=== PATIENT | male | born 1960 | race Caucasian/White ===

== ENCOUNTER 2021-09-25 00:32 | Day surgery (SDC) | payer BC, SELFPAY ==
[2021-09-23 09:13] VITALS: BMI 29.5
--- NOTE | 2021-09-23 09:23 | PC.NURSE ---
Report to the Outpatient Waiting Room, entrance under the green pavilion located off [facility], at time 0600 on date 09/25/21. OR Time: 0730. - You and your visitor will be asked a series of questions to screen for COVID 19 for your protection. - Only one visitor is allowed at this time. - The patient visitor is requested to leave or wait in car when not with patient. - A mask is required within the hospital. Patients may have clear liquids (water, carbonated beverages, clear teas, apple juice) until 3 hours prior to surgery with a maximum of 20 ounces. - No food from midnight until time of surgery Take the following medications with a SIP of water the morning of surgery: NONE Medications to discontinue per physician: VITAMINS/SUPPLEMENTS Date to take last dose: NO MORE UNTIL AFTER SURGERY Please no make-up, nail turkish, hairspray, perfume, deodorant, or body powder the day of surgery. No jewelry (including any body piercings) or valuables the day of surgery, leave them at home. Please take a shower or bath the night before, or the morning of, surgery with an antibacterial soap. Wear comfortable, loose fitting clothing. - Jewelry must be removed prior to entering the operating room. Rings and piercings that are not removed may be cut off. - The hospital will not accept responsibility for valuables. - Please leave all valuables, including medications, at home the day of surgery. If you are going home after surgery, a licensed hazardous materials driver must drive you home. - NO public transportation without another adult. - We recommend that an adult stay with you for 24 hours following discharge. - We also recommend that you do not drive, make important decision, drink alcoholic beverages, or take any drugs that were not prescribed by your health care provider for at least 24 hours after your discharge time. Follow any additional instructions given to you from your surgeon. If you or anyone in your household have experienced Covid symptoms in the past week, please notify your surgeon or the nurse liaison at the phone number below for possible testing. Telephone instructions given to PT - KUNAL COLEMAN and asked if any additional questions and then verbalized understanding. Patient advised to call surgeon office or pre surgery nurse liaison [phone] if any additional questions.
[2021-09-25] MEDS: LACTATED RINGERS 1,000 ML 30 ML IV CONT (06:27)
--- NOTE | 2021-09-25 07:04 | WPDHPUPDATE1 ---
History and Physical Update Update Date/Time: 09/25/21 07:04 History and Physical has been reviewed, including an updated exam of the patient. There are NO changes in the patient's condition. Risks, benefits, and alternatives have been discussed and questions answered. Patient agrees to proceed with procedure.
--- NOTE | 2021-09-25 07:07 | WPDANESEPPF ---
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 Patient Data Age: 61 Gender: M Height: 1.82 m Weight: 100.2 kg Allergies Allergy/AdvReac Type Severity Reaction Status Date / Time No Known Allergies Allergy Verified 09/25/21 07:04 Home Medications Medication Instructions Recorded Confirmed Type ascorbic acid (vitamin C) 1,000 mg 1 gm PO DAILY 04/25/19 09/25/21 History tablet aspirin 81 mg tablet,delayed 81 mg PO DAILY 04/25/19 09/25/21 History release famotidine 20 mg tablet 20 mg PO DAILY 04/25/19 09/25/21 History glucosamine sulfate 500 1 tablet PO DAILY 04/25/19 09/25/21 History mg-chondroitin 200 mg-msm 150 mg tablet legjtuei-xfi-hxstj acid 300 1 tablet PO DAILY 04/25/19 09/25/21 History mcg-lycopene 600 mcg-lutein 300 mcg tablet (Men 50 Plus Multivitamin) Patient hx anesthesia problems: none Family hx anesthesia problems: none Results Review: All pre-operative results and documents have been reviewed as part of the pre-operative evaluation. [facility] Surgical History Surgical History Presence of right artificial knee joint Social History Social History Smoking packs per day: 1 Smoking cigarettes per day: 20.0 Years smoked: 25 Smoking pack-years: 25.00 Smoking status: Former smoker Tobacco type: cigarettes Second hand tobacco smoke exposure: No Smoking end date: 03/22/01 Alcohol intake: current Drinks per week: 10 Substance use: never Substance use type: does not use Living arrangements: with family Gender identity (if verbalized by the patient): Male Spiritual care concerns: No Anes - Eval Final PreProcedure Day of Procedure 09/25/21 07:07 Patient weight: obese Heart: regular rate and rhythm Lungs: clear to auscultation Airway: Mallampati scale class II Neurological: alert and oriented Last oral intake: >/= 8 hours ASA classification: II Emergent: no Anesthetic plan: proceed Anesthesia type and monitoring: general GIVS and standard monitoring Results Review: All pre-operative results and documents have been reviewed as part of the pre-operative evaluation. Informed Consent: The patient's anesthetic plan and its attendant risks and benefits were discussed with the patient/family/POA. Questions were solicited and answers provided to the satisfaction of the patient/family/POA.
[2021-09-25] MEDS: LIDO 1%/EPINEPHRINE/PF 1:200,000 30 ML VIAL 10 ML XX (08:24)
[2021-09-25] MEDS: BALANCED SALT SOLN OPHTH IRRIG 30 ML BTL LEFT EYE (08:31)
[2021-09-25] MEDS: BACITRACIN OINTMENT 15 GM TUBE 1 APPLIC TOPICAL (08:55)
[2021-09-25 09:04] VITALS: BP 114/67; PULSE 65; RESP 12; O2SAT 95
--- NOTE | 2021-09-25 09:18 | W.PM.PROC2 ---
Procedure Note - Detailed Date of Procedure 09/25/21 Pre-op Diagnosis neoplasm uncertain behavior lft upper mid cuta lip Post-op Diagnosis Other (The frozen section report indicated no residual tumor but a small cyst) Procedure Performed 1 cm excision Surgeon Spenser Stokes MD
[2021-09-25 09:30] VITALS: BP 111/72; PULSE 65; RESP 20; O2SAT 95
--- NOTE | 2021-09-25 09:32 | W.PM.PROC2 ---
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 He was then taken to the operating room where he was placed supine on the operating table. He was given sedation anesthesia with an LMA. The face was prepped and draped in usual fashion. A time-out was held and confirmed. Surgical site was marked for excision and locally infiltrated with 1% lidocaine with epinephrine. The circular excision was carried out through full-thickness of skin extending in to the subcutaneous tissue. Cuts were beveled to protect hair follicles. The superior aspect of the specimen was marked with a suture for orientation. The tissue was sent to pathology. The pathologist reported that no tumor mass was really identified on frozen section but he did see a small cyst as basal wide cells. We proceeded to close this with a teardrop shape local advancement flap based superiorly. The skin margins were undermined in the subcutaneous layer and the flap was dissected with sharp and blunt dissection until it could be advanced to fill in the defect. The wound was closed with some 5 0 Vicryl dermal sutures and a running 5 0 nylon to close the skin. The patient was discharged from the operating room stable condition and is being discharged home with instructions in wound care and follow-up. He has no prescriptions. Estimated Blood Loss 2 Drains No Packing No Pathology Yes Complications No immediate complications Condition Stable Disposition Same day
[2021-09-25 09:55] VITALS: BP 134/85; PULSE 61; RESP 20
== END 2021-09-25 09:58 | disposition home or self-care (01) ==
PROVIDERS: PCP Family Medicine; Visit Provider Plastic Surgery
PROC: (CPT 14060; principal; 2021-09-25 07:30)
DX: D49.2 Neoplasm of unspecified behavior of bone, soft tissue, and skin (principal); Z79.82 Long term (current) use of aspirin; Z87.891 Personal history of nicotine dependence; E66.9 Obesity, unspecified; Z68.30 Body mass index [BMI] 30.0-30.9, adult
CPT/HCPCS: 14060; 88305; 88331; A9270; J2250; J2704; J3010; J7120

== ENCOUNTER 2022-06-23 11:51 | Outpatient (CLI) | payer BC, SELFPAY ==
--- NOTE | 2022-06-23 11:54 | ECG_ITS ---
Measurements Intervals [place] Rate: 58 P: 12 NE: 203 QRS: -24 QRSD: 105 T: 52 QT: 430 QTc: 423 Interpretive Statements SINUS BRADYCARDIA BORDERLINE LEFT AXIS DEVIATION [QRS AXIS < -20] INCOMPLETE RIGHT BUNDLE BRANCH BLOCK [90+ ms QRS DURATION, TERMINAL R IN V1/V2, 40+ ms S IN I/aVL/V4/V5/V6] NO PREVIOUS ECG AVAILABLE FOR COMPARISON Electronically Signed On 06-23-2022 16:09:42 CDT by Rayshawn Delgado M.D.
== END 2022-06-23 11:52 | disposition home or self-care (01) ==
PROVIDERS: PCP Family Medicine; Visit Provider Orthopaedic Surgery
DX: M17.11 Unilateral primary osteoarthritis, right knee (principal); I45.10 Unspecified right bundle-branch block; R00.1 Bradycardia, unspecified
CPT/HCPCS: 93005

== ENCOUNTER 2022-12-09 13:48 | Outpatient (CLI) | payer BC, SELFPAY ==
[2022-12-09 15:14] LABS: Basophils Percent Auto 0.4 % (0.2-1.2); Eosinophils Absolute Auto 0.1 K/mm3 (0-0.3); Eosinophils Percent Auto 1.8 % (0-4.4); Hemoglobin 15.2 g/dL (14.0-18.0); Immature Granulocyte Absolute 0.01 K/mm3 (0.00-0.031); Immature Granulocyte Percent A 0.1 % (0-0.5); Lymphocytes Absolute Auto 2.18 K/mm3 (0.9-3.2); Mean Corpuscular HGB Conc 33.8 g/dl (32-36); Mean Corpuscular Hemoglobin 31.5 pg (26-34); Mean Corpuscular Volume 93.4 fl (80-100); Mean Platelet Volume 9.3 fl (7.4-10.4); Monocytes Absolute Auto 0.6 K/mm3 (0.1-0.6); Monocytes Percent Auto 9.2 % (2.6-8.5); Neutrophils Absolute Auto 3.9 K/mm3 (1.3-6.7); Neutrophils Percent Auto 56.5 % (45.5-73.1); Platelet Count Result 248 k/mm3 (150-375); Red Blood Count 4.82 M/mm3 (4.6-6.20); Red Cell Distribution Width 12.6 % (11.5-14.5); White Blood Count 6.8 K/mm3 (4.5-10.0)
[2022-12-09 15:15] LABS: Appearance Urine Clear (Clear); Bilirubin Urine Negative (Negative); Blood Urine Negative (Negative); Color Urine Dark Yellow (Yellow); Glucose Urine UA Negative (Negative); Ketones Urine Negative (Negative); Leukocyte Esterase Ur Negative LEU/UL (Negative); Nitrate Urine Negative (Negative); Protein Urine Negative (Negative); Specific Grav Ur 1.029 (1.001-1.035)
[2022-12-09 15:23] LABS: Add Urine Microscopic? NO; Prothrombin Time 13.4 Seconds (11.1-14.7)
[2022-12-09 15:24] LABS: Albumin Level 4.4 g/dL (3.5-5.1); Anion Gap 5 mmol/L (8-16); Blood Urea Nitrogen 16 mg/dL (9-20); Calcium 8.7 mg/dL (8.4-10.2); Carbon Dioxide 33 mmol/L (22-30); Chloride 102 mmol/L (98-107); Estimated Glomerular Filt Rate > 60; Glucose 93 mg/dL (65-110); Partial Thromboplastin Time 29.2 SECONDS (22.3-36.8); Potassium 3.7 mmol/L (3.4-5.0); Sodium 140 mmol/L (137-145); Urine Cotinine NEGATIVE
[2022-12-09 20:53] LABS: Hemoglobin A1C 5.2 % (<5.7)
== END 2022-12-09 13:49 | disposition home or self-care (01) ==
LOC: ANHSURGERY 13:52
PROVIDERS: PCP Family Medicine; Visit Provider Orthopaedic Surgery
DX: M17.12 Unilateral primary osteoarthritis, left knee (principal); Z01.818 Encounter for other preprocedural examination
CPT/HCPCS: 80048; 80307; 81003; 82040; 83036; 85025; 85610; 85730; 87081

== ENCOUNTER 2022-12-24 15:16 | Observation (INO) | payer BC, SELFPAY ==
[2022-12-09 14:01] VITALS: BMI 30.4
--- NOTE | 2022-12-09 14:17 | PC.NURSE ---
Report to the Outpatient Waiting Room, entrance under the green pavilion located off [facility], at time __0600 on date _12/23/22 . Planned Procedure Time: _0730 . Time changes happen often and if your time is changed the preop area will call you the afternoon before. - You and your visitor will be asked to self-screen and do not enter if you have any COVID symptoms. - A mask is optional within the hospital at this time. Patients may have clear liquids (water, carbonated beverages, clear teas, apple juice) until 3 hours prior to surgery with a maximum of 20 ounces. - No food from midnight until time of surgery - Infants may have breast milk until 4 hours before surgery, infant formula 6 hours prior to surgery. - Children will be allowed to drink immediately following surgery. If applicable, please bring a bottle or sippy cup to assist with drinking. Juice, water, soda, and popsicles are readily available. For infants on formula, please bring formula the day of surgery. Pacifiers are allowed. Take the following medications with a SIP of water the morning of surgery: __NONE DO NOT STOP ANY OF YOUR OTHER PRESCRIPTION MEDICATIONS PRIOR TO SURGERY ?EXCEPT THE FOLLOWING Medications to discontinue per physician ____ASPIRIN AND NAPROXEN PER DR ARROYO. ALL VITAMINS AND SUPPLEMENTS 3 DAYS PRE OP.LAST DOSE 12/19/22 Please no make-up, nail indonesian, hairspray, perfume, deodorant, or body powder the day of surgery. No jewelry (including any body piercings) or valuables the day of surgery, leave them at home. Please take a shower or bath the night before, or the morning of, surgery with an antibacterial soap. Wear comfortable, loose fitting clothing. Children are encouraged to wear pajamas. - Jewelry must be removed prior to entering the operating room. Rings and piercings that are not removed may be cut off. - The hospital will not accept responsibility for valuables. - Please leave all valuables, including medications, at home the day of surgery. If you are going home after surgery, a licensed local delivery driver must drive you home. - NO public transportation without another adult if you receive anesthesia. - We recommend that an adult stay with you for 24 hours following discharge. - We also recommend that you do not drive, make important decision, drink alcoholic beverages, or take any drugs that were not prescribed by your health care provider for at least 24 hours after your discharge time. For Pediatric surgeries, we recommend two adults accompany the child home. Follow any additional instructions given to you from your surgeon. If you or anyone in your household have experienced Covid symptoms in the past week, please notify your surgeon or the nurse liaison at the phone number below for possible testing. VERBAL AND WRITTEN instructions given to ___PATIENT and asked if any additional questions and then verbalized understanding. Patient advised to call surgeon office or pre surgery nurse liaison [phone] if any additional questions.
[2022-12-09 14:33] VITALS: BP 106/70; PULSE 72; RESP 18; TEMP 37.1; O2SAT 98
[2022-12-23] VITALS (15 sets, daily range): BP systolic 103–141; BP diastolic 66–93; PULSE 62–79; RESP 12–16; TEMP 35.7–36.6; O2SAT 93–100
[2022-12-23] MEDS: TRANEXAMIC ACID 1,000MG/ISO100 1,000 MG/100 ML BAG 200 MG IVPB (06:34)
[2022-12-23] MEDS: LACTATED RINGERS 1,000 ML 30 ML IV CONT ×2 (06:34→10:19)
[2022-12-23] MEDS: ACETAMINOPHEN 500 MG TABLET 1000 MG PO (06:35)
--- NOTE | 2022-12-23 06:43 | WPDANESEPPF ---
Anes - Initial Pre Proc Eval Procedure: Operation Date: 12/23/22 07:30 Proposed Procedures p Left Total Knee Arthroplasty - Jordan Bolanos MD Date/Time: 12/23/22 06:43 Surgeon: Jordan Bolanos MD Pre Op Diagnosis: left knee djd Patient Data Age: 62 Gender: M Height: 1.8 m Weight: 99.1 kg Last Vital Signs Temp 37.1 C 12/09/22 14:33 Pulse 72 12/09/22 14:33 Resp 18 12/09/22 14:33 BP 106/70 12/09/22 14:33 Pulse Ox 98 12/09/22 14:33 O2 Del Method Room Air 12/09/22 14:33 Allergies Allergy/AdvReac Type Severity Reaction Status Date / Time No Known Allergies Allergy Verified 12/09/22 14:04 Home Medications Medication Instructions Recorded Confirmed Type ascorbic acid (vitamin C) 1,000 mg 1 gm PO DAILY 04/25/19 12/09/22 History tablet aspirin 81 mg tablet,delayed 81 mg PO DAILY 04/25/19 12/09/22 History release famotidine 20 mg tablet 20 mg PO HS 04/25/19 12/09/22 History nwycroqm-xm-qilzd 300 mcg-K 60 1 tablet PO DAILY 04/25/19 12/09/22 History mcg-lycop 600 mcg-lutein 300 mcg tablet (Men 50 Plus Multivitamin) triamcinolone acetonide 0.1 % 1 applic topical BID PRN rash #30 09/14/22 12/09/22 Rx topical ointment grams glucosamine-chondroitin 500 mg-400 1 tablet PO BID 12/09/22 12/09/22 History mg tablet naproxen 500 mg tablet 500 mg PO BID PRN PRN 12/09/22 12/09/22 History chlorhexidine gluconate 4 % 1 applic topical ONCE #237 mL 12/10/22 Rx topical liquid (Hibiclens) Patient hx anesthesia problems: none Family hx anesthesia problems: none Results Review: All pre-operative results and documents have been reviewed as part of the pre-operative evaluation. [facility] Past Medical History Medical History (Updated 12/23/22 @ 06:43 by Adolfo Becker MD) Obesity SHERMAN (obstructive sleep apnea) Surgical History Surgical History Presence of right artificial knee joint Social History Social History Smoking packs per day: 1 Smoking cigarettes per day: 20.0 Years smoked: 25 Smoking pack-years: 25.00 Smoking status: Former smoker Tobacco type: cigarettes Second hand tobacco smoke exposure: No Smoking end date: 08/20/00 Additional smoking assessment comments: ONE CIGAR ON WEDNESDAY.STATES HAS HAD 3 CIGARS IN 20 YRS Alcohol intake: current Drinks per week: 6 Substance use: never Substance use type: does not use Living arrangements: with family Occupation/Education: occupation Gender identity (if verbalized by the patient): Male Spiritual care concerns: No Anes - Eval Final PreProcedure Day of Procedure 12/23/22 06:43 Patient weight: obese Heart: regular rate and rhythm Lungs: clear to auscultation Airway: Mallampati scale class II Neurological: alert and oriented Last oral intake: >/= 8 hours ASA classification: III Anesthetic plan: proceed Anesthesia type and monitoring: general LMA and standard monitoring Results Review: All pre-operative results and documents have been reviewed as part of the pre-operative evaluation. Informed Consent: The patient's anesthetic plan and its attendant risks and benefits were discussed with the patient/family/POA. Questions were solicited and answers provided to the satisfaction of the patient/family/POA.
--- NOTE | 2022-12-23 07:19 | WPDHPUPDATE1 ---
History and Physical Update Update Date/Time: 12/23/22 07:19 History and Physical has been reviewed, including an updated exam of the patient. There are NO changes in the patient's condition. Risks, benefits, and alternatives have been discussed and questions answered. Patient agrees to proceed with procedure.
--- NOTE | 2022-12-23 07:29 | WPDANESPNB ---
Anes - Peripheral Nerve Block Date/Time: 12/23/22 07:29 I have discussed with the patient/family/POA the placement of a peripheral nerve block for post-operative pain management, including associated risks, benefits, complications, and side effects. Alternative methods of post-operative analgesia were detailed. Questions were solicited and answers provided to the satisfaction of the patient/family/POA. Time-Out: A pre-procedural Time-Out was completed immediately before starting the procedure and confirmed: Patient Identification, Site, Procedure, Patient Position and the Availability of Requisite Equipment. Clinical Indications: Acute post-operative pain management requested by the operative surgeon. Nerve Block Insertion Note Anes-nerve block: femoral left Patient position: supine Skin prep: chlorhexidine Needle: 22 gauge, stimulating, insulated echogenic needle. Needle length: 50 mm Technique: nerve stimulation lost at (mA) (0.35) Injectate: bupivacaine 0.5% with epi 5 mcg/ml (30cc no epi) Observations: tolerated well Complications: none Procedure start time:: 719 Procedure end time:: 724
[2022-12-23] MEDS: ceFAZolin 2 GM/D5W 50 ML 2 GM/50 ML BAG IVPB ×3 (07:30→23:08)
[2022-12-23] MEDS: TRANEXAMIC ACID 1,000 MG/10 ML AMPUL 1000 MG IV PUSH (09:35)
--- NOTE | 2022-12-23 10:23 | W.PM.PROC2 ---
Procedure Note - Detailed Date of Procedure 12/23/22 Pre-op Diagnosis left knee djd Post-op Diagnosis Same Procedure Performed R TKA Surgeon Jordan Bolanos MD Anesthesia General Description of Procedure THE RIGHT KNEE WAS PREPPED AND DRAPED IN THE STERILE FASHION. A MIDLINE SKIN INCISION WAS MADE. A MEDIAL PARAPATELLAR ARTHROTOMY WAS MADE. THE PATELLA WAS EVERTED. THERE WAS TRICOMPARTMENT DJD. AN INTRAMEDULLARY MADISYN WAS PLACED IN THE FEMUR. USING MARLA INSTRUMENTATION A DISTAL FEMORAL CUT WAS MADE IN 5 DEGREES OF VALGUS REMOVING APPROXIMATELY 8 MM OF BONE FROM THE DISTAL FEMUR. THE FEMUR WAS SIZED TO A 4. A 4 FEMORAL CUTTING BLOCK WAS PLACED IN 3 DEGREES OF EXTERNAL ROTATION AND IN ALIGNMENT WITH NY'S LINE AND THE TRANSEPICONDYLAR AXIS. ANTERIOR POSTERIOR AND CHAMFER CUTS WERE MADE. THE CUTS WERE EXCELLENT. NEXT AN INTRAMEDULLARY CUTTING GUIDE WAS PLACED IN THE TIBIA. A TRANS TIBIAL CUT WAS MADE ALONG THE LONG AXIS OF THE TIBIA. APPROXIMATELY 9 MM OF BONE WAS REMOVED FROM THE HIGH SIDE OF THE TIBIA. POSTERIOR FEMORAL OSTEOPHYTES WERE REMOVED FROM THE FEMORAL CONDYLES. A 5 TIBIAL TRIAL WAS PLACED IN ALIGNMENT WITH THE 1/3 MEDIAL ASPECT OF THE TIBIAL TUBERCLE. THEN A 4 FEMORAL TRIAL COMPONENT WAS PLACED. BOTH HAD EXCELLENT FITS. EVENTUALLY A 10 MM CR POLYETHYLENE TRIAL COMPONENT WAS PLACED. THE KNEE WAS TAKEN THROUGH A RANGE OF MOTION. THE KNEE CAME OUT TO FULL EXTENSION. THERE WAS NO ABNORMAL TILT TO THE PATELLA. THERE WAS GOOD A/P AND VARUS/VALGUS STABILITY. THERE WAS NO EXCESSIVE ROLL BACK WITH FLEXION. THE TRIAL COMPONENTS WERE REMOVED. THEN A 4 MARLA FEMORAL COMPONENT AND 5 MARLA TIBIAL COMPONENT WITH A 10 CR POLYETHYLENE COMPONENT WERE PRESS FIT INTO PLACE. THE KNEE WAS TAKEN THROUGH A ROM AGAIN AND FOUND TO BE STABLE WITH NO PATELLA TILT NO EXCESSIVE ROLL BACK WITH FLEXION AND GOOD STABILITY WITH COMPLETE AND FULL EXTENSION. THE KNEE WAS IRRIGATED WITH STERILE BETADINE AND WATER FOR ABOUT 3 MINUTES. THE BLEEDERS WERE CAUTERIZED. THE ARTHROTOMY WAS REPAIRED WITH NUMBER 1 VICRYL. THE SUB CUTANEOUS LAYER WITH 2-0 VICRYL AND THE SKIN WITH LM. THE WOUND WAS WASHED AND A STERILE DRESSING WAS APPLIED. PATIENT WAS EXTUBATED. Estimated Blood Loss 50 Pathology None sent Complications No immediate complications Condition Stable Disposition PACU
--- NOTE | 2022-12-23 12:01 | ADMGEN ---
This patient, Presley Ramos, was admitted to 3 [facility] Surg Room 327-01. Patient/family oriented to hospital policies and general routines including ID bracelet, bed and alarms, visiting hours, pain management, procedures, bathroom and other care routines, personal items, smoking policy, room service/diet, and visiting hours. Information on how to activate the Rapid Response Team has been discussed. Patient/Family are encouraged to report perceived risks to care and to ask questions if they do not understand what they are told or what they should do.
[2022-12-23] MEDS: KETOROLAC 15 MG/ML VIAL (*BKC) IV PUSH ×3 (15:20→23:06)
[2022-12-23] MEDS: SENNA/DOCUSATE SODIUM TABLET 2 TAB PO (17:04)
[2022-12-23] MEDS: ASPIRIN 325 MG ENTERIC TABLET PO (20:19)
[2022-12-23] MEDS: FAMOTIDINE 20 MG TABLET PO (20:19)
--- NOTE | ~2022-12-24 | XR_ITS ---
EXAMINATION: [id number] DATE: 12/23/2022 10:31 INDICATION: Postoperative evaluation following left total knee arthroplasty. TECHNIQUE: Anteroposterior and lateral views of the left knee were obtained. COMPARISON: 12/03/2022 FINDINGS: Left total knee arthroplasty without patellar resurfacing appears well seated and in near anatomic al ignment. No acute fractures identified. Old healed fracture deformity at the proximal left tibial me tadiaphyseal region. Anterior skin michelle and expected postoperative subcutaneous, intramedullary an d intra-articular gas. IMPRESSION: 1. Left total knee arthroplasty, negative for postoperative purposes. Reviewed, dictated and finalized at location A.
[2022-12-24 01:24] VITALS: BP 121/70; PULSE 71; RESP 16; TEMP 35.6; O2SAT 98
[2022-12-24 03:05] VITALS: PULSE 66; O2SAT 97
[2022-12-24 05:24] VITALS: BP 127/71; PULSE 68; RESP 20; TEMP 35.6; O2SAT 99
[2022-12-24] MEDS: KETOROLAC 15 MG/ML VIAL (*BKC) IV PUSH ×2 (05:52→12:42)
[2022-12-24] MEDS: ceFAZolin 2 GM/D5W 50 ML 2 GM/50 ML BAG IVPB (05:54)
[2022-12-24 06:28] LABS: Basophils Percent Auto 0.1 % (0.2-1.2); Hematocrit 38.6 % (42.0-52.0); Immature Granulocyte Absolute 0.07 K/mm3 (0.00-0.031); Immature Granulocyte Percent A 0.4 % (0-0.5); Lymphocytes Absolute Auto 1.14 K/mm3 (0.9-3.2); Lymphocytes Percent Auto 6.9 % (18.3-44.2); Mean Corpuscular HGB Conc 33.7 g/dl (32-36); Mean Corpuscular Hemoglobin 31.5 pg (26-34); Mean Corpuscular Volume 93.5 fl (80-100); Mean Platelet Volume 9.7 fl (7.4-10.4); Monocytes Absolute Auto 1.1 K/mm3 (0.1-0.6); Monocytes Percent Auto 6.8 % (2.6-8.5); Neutrophils Absolute Auto 14.1 K/mm3 (1.3-6.7); Neutrophils Percent Auto 85.8 % (45.5-73.1); Platelet Count Result 217 k/mm3 (150-375); Red Blood Count 4.13 M/mm3 (4.6-6.20); White Blood Count 16.4 K/mm3 (4.5-10.0)
[2022-12-24 06:44] LABS: Anion Gap 5 mmol/L (8-16); Blood Urea Nitrogen 13 mg/dL (9-20); Calcium 8.1 mg/dL (8.4-10.2); Carbon Dioxide 28 mmol/L (22-30); Chloride 105 mmol/L (98-107); Estimated CRCL calculation 102 ml/min; Estimated Glomerular Filt Rate > 60; Glucose 130 mg/dL (65-110); Sodium 138 mmol/L (137-145)
[2022-12-24] MEDS: SENNA/DOCUSATE SODIUM TABLET 2 TAB PO ×2 (08:54→17:50)
[2022-12-24] MEDS: ASCORBIC ACID 500 MG TABLET 1000 MG PO (08:54)
[2022-12-24] MEDS: ASPIRIN 325 MG ENTERIC TABLET PO ×2 (08:54→20:47)
--- NOTE | 2022-12-24 09:23 | PM.PNORT ---
Progress Note: A&P Assessment and Plan (1) Status post total left knee replacement: Code(s): Z96.652 - Presence of left artificial knee joint Status: Acute Assessment and Plan: POD #1: Left TKA Continue PT/OT. WBAT. Walker. HIGH FALL RISK. Okay to utilize knee immobilizer for safety concerns given femoral nerve block. Continue pain control. Ice Knee. Protect skin. DVT prophylaxis with Aspirin. SCDs. Incentive Spirometry Use reviewed. Monitor Dressing. Change prior to discharge. Bowel Regimen. Dispo: Home with Home Health pending progress with PT/OT Plan Reviewed postoperative labs, femoral nerve block concerns, vitals and exam with attending MD, Dr. Bolanos. Agrees with current plans as indicated above. No further recommendations at this time. Subjective Subjective Date/Time Seen: 12/24/22 09:23 Post Op day: 1 Principal diagnosis: Left Knee DJD Interval history: POD #1: Left TKA Patient up in chair at time of exam. Pain well controlled. Difficulty with PT/OT due to femoral nerve block. Slow progress. Reinforced need for fall precautions. Review of Systems Review of Systems: All systems reviewed & are unremarkable except as noted in HPI and below Constitutional: Constitutional: Denies fever(s) and Denies headache(s) ENT: Denies headache(s) Cardiovascular: Cardiovascular: Denies chest pain, Denies diaphoresis, Reports lightheadedness, Denies palpitations and Denies dyspnea Respiratory: Respiratory: Denies dyspnea Gastrointestinal: Gastrointestinal: Denies abdominal pain, Denies constipation, Denies nausea and Denies vomiting Genitourinary: Genitourinary: Denies dysuria and Reports nocturia Musculoskeletal: Musculoskeletal: Reports arthralgias (Left Knee ), Reports joint swelling (Left Knee ) and Reports limited range of motion (ROM limited due to recent surgical intervention LEFT Knee ) Neurologic: Denies headache(s) Endocrine: Endocrine: Denies palpitations Exam Const: General: comfortable and no acute distress Resp: Effort & Inspection: normal respiratory effort Cardio: Rate: regular rate Rhythm: regular rhythm GI: GI Palp: Yes Soft to palpation, No Tenderness to palpation present (GI) and No Guarding due to palpation present (GI) Skin: General skin exam: wounds noted (see extremity assessment ) Wounds: wounds noted (see extremity assessment ) Neuro: Cognition (Neuro): normal cognition Other: NV intact aside from block. Moves toes. Sensation intact to light touch. +ankle dorsiflexion/plantarflexion. Extrem: Left lower extremity: normal to inspection, normal capillary refill, knee Details: tenderness (diffuse ) Location: of the patella, swelling (moderate consistent to recent surgery ), abnormal ROM (limited due to recent surgery ) Details: pain with active ROM and pain with passive ROM and ecchymosis (as expected with recent surgery. NO hematoma. ), lower leg (Negative Lei's Sign ), ankle (+ankle dorsiflexion/plantarflexion ) Details: normal to inspection, no edema and normal ROM; no tenderness and no swelling and foot Details: normal capillary refill, toes with normal ROM, vascular exam Details: dorsalis pedis pulse present and motor-sensory exam light-touch normal; no tenderness Other: Incision left TKA dressing c/d/i. No hematoma. No signs of infection. No wound dehiscence. Psych: Mental Status: mental status grossly normal Objective Data Vital Signs Vital Signs: Vital Signs - 24 hr 12/23/22 10:19 12/23/22 10:45 12/23/22 10:52 Temperature 36.4 C Pulse Rate 73 78 Respiratory Rate 12 14 Blood Pressure 113/73 135/93 H Pulse Oximetry 97 99 Oxygen Delivery Simple Face Mask Simple Face Mask Room Air Oxygen Flow Rate 6 6 12/23/22 11:00 12/23/22 10:30 12/23/22 11:08 Temperature Pulse Rate 75 72 71 Respiratory Rate 16 12 14 Blood Pressure 130/74 133/67 134/83 Pulse Oximetry 94 96 93 Oxygen Delivery Room Air Simple Face Mask Room Air
[2022-12-24 09:24] VITALS: BP 129/83; PULSE 68; RESP 16; TEMP 36.8; O2SAT 99
[2022-12-24 13:24] VITALS: BP 126/81; PULSE 72; RESP 16; TEMP 36.9; O2SAT 98
--- NOTE | 2022-12-24 14:00 | P.PNAN_ITS ---
Anes - Prog Note Post-Op Date/Time: 12/24/22 14:00 Cardiovascular status: normal Respiratory status: normal Airway patency: baseline Mental status: baseline Post-Op hydration status: normal Vital Signs: Last Vital Signs Temp 35.6 C L 12/24/22 05:24 Pulse 68 12/24/22 05:24 Resp 20 12/24/22 05:24 BP 127/71 12/24/22 05:24 Pulse Ox 99 12/24/22 05:24 O2 Del Method CPAP 12/24/22 03:05 O2 Flow Rate 6 12/23/22 10:45 Pain Score (VAS): 05/01 I/O: Intake & Output 12/23/22 12/24/22 12/24/22 23:59 07:59 15:59 Intake Total 368 180 Balance 368 180 Laboratory Tests 12/24/22 05:47 12/24/22 05:47 12/24/22 05:47 WBC 16.4 H RBC 4.13 L Hgb 13.0 L Hct 38.6 L MCV 93.5 MCH 31.5 MCHC 33.7 RDW 12.0 Plt Count 217 MPV 9.7 Immature Gran % (Auto) 0.4 Neut % (Auto) 85.8 H Lymph % (Auto) 6.9 L [place] % (Auto) 6.8 Eos % (Auto) 0.0 Baso % (Auto) 0.1 L Lymph # (Auto) 1.14 [place] # (Auto) 1.1 H Eos # (Auto) 0.0 Baso # (Auto) 0.0 Abs Immat Gran (auto) 0.07 H Absolute Neuts (auto) 14.1 H Absolute Nucleated RBC 0.0 Nucleated RBC % 0.0 Sodium 138 Potassium 4.0 Chloride 105 Carbon Dioxide 28 Anion Gap 5 L BUN 13 Creatinine 0.80 Estim Creat Clear Calc 102 Estimated GFR > 60 Glucose 130 H Calcium 8.1 L Post-procedural complaints: none Patient Feedback: Patient satisfied with anesthetic care.
[2022-12-24] MEDS: oxyCODONE/ACETAMINOPHEN (*CRX) 5-325 MG TABLET 1 TABLET PO (18:25)
[2022-12-24] MEDS: FAMOTIDINE 20 MG TABLET PO (20:47)
[2022-12-24 21:15] VITALS: BP 138/67; PULSE 90; RESP 18; TEMP 36.6; O2SAT 99
[2022-12-24] MEDS: oxyCODONE/ACETAMINOPHEN (*CRX) 5-325 MG TABLET 2 TABLET PO (23:42)
[2022-12-25 03:25] VITALS: BP 109/57; PULSE 69; RESP 16; TEMP 36.2; O2SAT 97
[2022-12-25] MEDS: ACETAMINOPHEN 500 MG TABLET 1000 MG PO (03:48)
[2022-12-25] MEDS: oxyCODONE/ACETAMINOPHEN (*CRX) 5-325 MG TABLET 1 TABLET PO (05:30)
--- NOTE | 2022-12-25 08:41 | PM.PNORT ---
Progress Note: A&P Assessment and Plan (1) Status post total left knee replacement: Code(s): Z96.652 - Presence of left artificial knee joint Status: Acute Assessment and Plan: POD #2: Left TKA Continue PT/OT. WBAT. Walker. HIGH FALL RISK. Okay to utilize knee immobilizer for safety concerns given femoral nerve block. Continue pain control. Ice Knee. Protect skin. DVT prophylaxis with Aspirin. SCDs. Incentive Spirometry Use reviewed. Monitor Dressing. Change prior to discharge. Bowel Regimen. Dispo: Home with Home Health pending progress with PT/OT and resolution of nerve block for safety concerns with ambulation. Plan Reviewed postoperative labs, femoral nerve block concerns, vitals and exam with attending MD, Dr. Bolanos. Agrees with current plans as indicated above. No further recommendations at this time. Subjective Subjective Date/Time Seen: 12/25/22 08:41 Post Op day: 2 Principal diagnosis: Left Knee DJD Interval history: POD #2: Left TKA Patient doing well. Pain well controlled but he does feel block is starting to wear off. Awaiting PT/OT this AM. Hopeful for discharge home but he has to complete stairs prior to discharge as he has 13 stairs to get into his home. No other concerns. Review of Systems Review of Systems: All systems reviewed & are unremarkable except as noted in HPI and below Constitutional: Constitutional: Denies fever(s) and Denies headache(s) ENT: Denies headache(s) Cardiovascular: Cardiovascular: Denies chest pain, Denies diaphoresis, Denies palpitations and Denies dyspnea Respiratory: Respiratory: Denies dyspnea Gastrointestinal: Gastrointestinal: Denies abdominal pain, Denies constipation, Denies nausea and Denies vomiting Genitourinary: Genitourinary: Denies dysuria and Reports nocturia Musculoskeletal: Musculoskeletal: Reports arthralgias (Left Knee ), Reports joint swelling (Left Knee ) and Reports limited range of motion (ROM limited due to recent surgical intervention LEFT Knee ) Neurologic: Denies headache(s) Endocrine: Endocrine: Denies palpitations Objective Data Vital Signs Vital Signs: Vital Signs - 24 hr 12/24/22 09:24 12/24/22 13:24 12/24/22 20:00 Temperature 36.8 C 36.9 C Pulse Rate 68 72 Respiratory Rate 16 16 Blood Pressure 129/83 126/81 Pulse Oximetry 99 98 Oxygen Delivery Room Air 12/24/22 21:15 12/25/22 03:25 Temperature 36.6 C 36.2 C L Pulse Rate 90 69 Respiratory Rate 18 16 Blood Pressure 138/67 109/57 L Pulse Oximetry 99 97 Oxygen Delivery Intake/Output Intake/Output: Intake & Output 12/22/22 12/23/22 12/24/22 12/25/22 23:59 23:59 23:59 23:59 Intake Total 1008 660 750 Balance 1008 660 750 Meds/Results Medications: Active Medications Generic Name Dose Route Start Last Admin Trade Name Freq PRN Reason Stop Dose Admin Acetaminophen 1,000 mg 12/23/22 11:39 12/25/22 03:48 Acetaminophen 500 Mg Tablet PO 1,000 mg Q6H PRN Administration Pain Rated 1-3 Ascorbic Acid 1,000 mg 12/24/22 09:00 12/24/22 08:54 Ascorbic Acid 500 Mg Tablet PO 1,000 mg DAILY RAJ Administration Aspirin 325 mg 12/23/22 21:00 12/24/22 20:47 Aspirin 325 Mg Enteric Tablet PO 325 mg Q12HR RAJ Administration Diazepam 5 mg 12/23/22 11:39 Diazepam (*Crx) 5 Mg Tablet PO Q8H PRN Spasms Diphenhydramine HCl 25 mg 12/23/22 11:39 Diphenhydramine Hcl Inj 50 Mg/Ml Vial IV PUSH Q6H PRN Itching Famotidine 20 mg 12/23/22 21:00 12/24/22 20:47 Famotidine 20 Mg Tablet PO 20 mg HS RAJ Administration Naloxone HCl 0.1 mg 12/23/22 11:39 Naloxone Hcl 0.4 Mg/Ml Vial IV PUSH Q2M PRN Opiate Reversal Ondansetron HCl 4 mg 12/23/22 11:39 Ondansetron Inj 4 Mg/2 Ml Vial IV PUSH Q4H PRN Nausea And Vomiting Oxycodone/Acetaminophen 1 tablet 12/23/22 11:39 12/25/22 05:30 Oxycodone/Acetaminophen (*Crx) 5-325 Mg Tablet PO 1 tab
[2022-12-25] MEDS: SENNA/DOCUSATE SODIUM TABLET 2 TAB PO (09:39)
[2022-12-25] MEDS: ASCORBIC ACID 500 MG TABLET 1000 MG PO (09:40)
[2022-12-25] MEDS: ASPIRIN 325 MG ENTERIC TABLET PO (09:40)
[2022-12-25] MEDS: oxyCODONE/ACETAMINOPHEN (*CRX) 5-325 MG TABLET 2 TABLET PO (09:46)
--- NOTE | 2022-12-25 12:30 | PM.PNORT ---
Progress Note: A&P Assessment and Plan (1) Status post total left knee replacement: Code(s): Z96.652 - Presence of left artificial knee joint Status: Acute Assessment and Plan: POD 2 DOING WELL. OK TO DC HOME F/U IN 3 WEEKS. (2) Left knee DJD: Code(s): M17.12 - Unilateral primary osteoarthritis, left knee Status: Acute Subjective Subjective Date/Time Seen: 12/25/22 12:30 Interval history: POD 2 DOING WELL. HIS FEMORAL NERVE BLOCK HAS RESOLVED. HE IS WALKING WELL WITH PT. 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 HOMANS SIGN CALF SOFT NON TENDER, THIGH SOFT NON TENDER Objective Data Vital Signs Vital Signs: Vital Signs - 24 hr 12/24/22 13:24 12/24/22 20:00 12/24/22 21:15 Temperature 36.9 C 36.6 C Pulse Rate 72 90 Respiratory Rate 16 18 Blood Pressure 126/81 138/67 Pulse Oximetry 98 99 Oxygen Delivery Room Air 12/25/22 03:25 Temperature 36.2 C L Pulse Rate 69 Respiratory Rate 16 Blood Pressure 109/57 L Pulse Oximetry 97 Oxygen Delivery Intake/Output Intake/Output: Intake & Output 12/22/22 12/23/22 12/24/22 12/25/22 23:59 23:59 23:59 23:59 Intake Total 2974 555 3600 Balance 6102 297 4720 Meds/Results Medications: Active Medications Generic Name Dose Route Start Last Admin Trade Name Freq PRN Reason Stop Dose Admin Acetaminophen 1,000 mg 12/23/22 11:39 12/25/22 03:48 Acetaminophen 500 Mg Tablet PO 1,000 mg Q6H PRN Administration Pain Rated 1-3 Ascorbic Acid 1,000 mg 12/24/22 09:00 12/25/22 09:40 Ascorbic Acid 500 Mg Tablet PO 1,000 mg DAILY RAJ Administration Aspirin 325 mg 12/23/22 21:00 12/25/22 09:40 Aspirin 325 Mg Enteric Tablet PO 325 mg Q12HR RAJ Administration Diazepam 5 mg 12/23/22 11:39 Diazepam (*Crx) 5 Mg Tablet PO Q8H PRN Spasms Diphenhydramine HCl 25 mg 12/23/22 11:39 Diphenhydramine Hcl Inj 50 Mg/Ml Vial IV PUSH Q6H PRN Itching Famotidine 20 mg 12/23/22 21:00 12/24/22 20:47 Famotidine 20 Mg Tablet PO 20 mg HS RAJ Administration Naloxone HCl 0.1 mg 12/23/22 11:39 Naloxone Hcl 0.4 Mg/Ml Vial IV PUSH Q2M PRN Opiate Reversal Ondansetron HCl 4 mg 12/23/22 11:39 Ondansetron Inj 4 Mg/2 Ml Vial IV PUSH Q4H PRN Nausea And Vomiting Oxycodone/Acetaminophen 1 tablet 12/23/22 11:39 12/25/22 05:30 Oxycodone/Acetaminophen (*Crx) 5-325 Mg Tablet PO 1 tablet Q4H PRN Administration Pain Rated 4-6 Oxycodone/Acetaminophen 2 tablet 12/23/22 11:39 12/25/22 09:46 Oxycodone/Acetaminophen (*Crx) 5-325 Mg Tablet PO 2 tablet Q6H PRN Administration Pain Rated 7-10 Polyethylene Glycol 17 gm 12/24/22 09:00 12/25/22 09:40 Polyethylene Glycol 3350 17 Gm Powd.Pack PO Not Given [facility] Senna/Docusate Sodium 2 tab 12/23/22 17:00 12/25/22 09:39 Senna/Docusate Sodium Tablet PO 2 tab BID RAJ Administration Radiology Results: ITS Impressions Knee X-Ray 12/23/22 10:34 IMPRESSION: 1. Left total knee arthroplasty, negative for postoperative purposes.
--- NOTE | 2022-12-25 14:13 | PC.NURSE ---
Wound care performed per instruction. Additional supplies given as requested by
--- NOTE | 2023-01-29 10:37 | PM.DS ---
DS: Admitting Diagnosis Discharge Date 12/25/22 Admitting Diagnosis LEFT KNEE DJD DS: Discharge Diagnosis Discharge Diagnosis (1) Status post total left knee replacement: Code(s): Z96.652 - Presence of left artificial knee joint Status: Acute DS: Summary Hospital Course Reason for hospitalization: LEFT TKA Hospital Course: PATIENT WAS ADMITTED S/P TOTAL KNEE ARTHROPLASTY FOR POSTOPERATIVE MEDICAL MANAGEMENT, PAIN CONTROL AND MOBILIZATION WITH PHYSICAL AND OCCUPATIONAL THERAPY. THE PATIENT PROGRESSED WELL WITH PT/OT. LABS AND VITALS REMAINED STABLE AND PAIN WELL CONTROLLED. THE PATIENT HAS BEEN CLEARED TO BE DISCHARGED HOME. FOLLOW UP APPOINTMENT SCHEDULED. DISCHARGE INSTRUCTIONS DISCUSSED AT LENGTH WITH THE PATIENT. MEDICATIONS REVIEWED. Status at Discharge Cognitive/behavioral status at discharge: STABLE Time Spent with Patient Time attestation: Total time spent providing and/or coordinating discharge services: DS: Data Procedures/Treatments: LEFT TKA Discharge Plan Discharge Attending physician on discharge: Jordan Bolanos Consulting providers: Adolfo Becker; Prakash Terry; Krupa García; Nataly Mckeon Discharging Clinician: Jordan Bolanos Anticipated Discharge Date/Time: 12/25/22 12:32 Patient Disposition: Home Health Service Activity: may shower Diet: as tolerated Wound Care Instructions: keep dressing dry Discharge Instructions: [facility] arranged for RN, PT/OT evaluations and treatment. [facility] will contact you to arrange first visit. [facility] contact phone number is [phone]. Post Op Total Knee Replacement Instructions Dr. Jordan Bolanos [phone] Your dressing will be changed prior to your discharge. You will be sent home with one additional dressing to be changed on post op day 7 by the home health RN. Your michelle will be removed on the 14th day after surgery and steri-strips will be placed. Please practice good hand hygiene and do not touch your incision in order to prevent infection. You may shower with your dressing but do not submerge in a bath tub. Do not drive or operate machinery until you are released by Dr. Bolanos. Do not walk without a walker for any reason until you are released by Dr. Bolanos. Continue to use your ice machine. Please use a towel or pillow case to protect your skin before applying your ice machine. Do NOT place a pillow under your knee. You may use a pillow from the calf down if needed. This will prevent a flexion contracture postoperatively. You may begin use of your CPM machine at home if you have been given one pre-operatively. DO NOT USE WHILE YOU ARE SLEEPING. Your first post op appointment was sent to you via mail preoperatively. If you have any questions or are unable to make your appointment, please contact our office for scheduling questions. Your medications have been sent to your pharmacy. You have been sent home with pain medication. Please medicinal plant picker an over the counter stool softener to prevent constipation due to narcotic use. Please keep this in mind during your postoperative recovery. If you are not experiencing regular bowel movements, please contact our office for further instruction. DVT prophylaxis take Aspirin 325mg PO twice a day for 28 days post op. Please contact our office with any questions/concerns regarding your knee at [phone]. Patient Instructions: Antibiotic Form Stand Alone Forms: General Discharge Information Follow-up/Referrals: Jordan Bolanos MD [Physician] - 01/14/23 9:15 am Discharge Medications: New aspirin 325 mg Tablet,Delayed Release (Dr/Ec) 325 mg PO Q12HR 28 Days Qty: 56 0RF diazepam [Valium] 5 mg tablet 2.5 mg PO BID PRN (Reason: muscle spasm) Qty: 30 0RF celecoxib [Celebrex] 200 mg capsule 200 mg PO BID PRN (Reason: pain) Qty: 30 0RF Continued ascorbic acid (vitamin C) 1,000 mg tablet 1 gm PO DAILY
== END 2022-12-25 15:00 | disposition home health service (06) ==
LOC: ANHSURGERY 15:22 → ANH3MEDSUR 15:22
PROVIDERS: Admitting Provider Orthopaedic Surgery; PCP Family Medicine; Visit Provider Orthopaedic Surgery
PROC: (CPT 27447; principal; 2022-12-23 07:30)
DX: M17.12 Unilateral primary osteoarthritis, left knee (principal); Z96.651 Presence of right artificial knee joint; E66.9 Obesity, unspecified; Z68.30 Body mass index [BMI] 30.0-30.9, adult; G47.33 Obstructive sleep apnea (adult) (pediatric); Z87.891 Personal history of nicotine dependence; F10.90 Alcohol use, unspecified, uncomplicated; Z79.1 Long term (current) use of non-steroidal anti-inflammatories (NSAID)
CPT/HCPCS: 64447; 27447; 36415; 73560; 80048; 85025; 86850; 86900; 86901; 97110; 97116; 97161; 97165; 97530; 97535; A9270; C1713; C1776; G0378; J0171; J0690; J1100; J1170; J1885; J2250; J2270; J2405; J2704; J2795; J3010; J7120; L1830

== ENCOUNTER 2023-08-31 02:02 | Day surgery (SDC) | payer BC, SELFPAY ==
[2023-08-25 09:28] VITALS: BMI 30.7
[2023-08-31 06:49] VITALS: BP 135/72; PULSE 67; RESP 18; TEMP 36; O2SAT 96; BMI 30.6
[2023-08-31] MEDS: LACTATED RINGERS 1,000 ML 150 ML IV CONT (06:59)
--- NOTE | 2023-08-31 07:54 | PM.HPGS ---
History of Present Illness History of Present Illness Consent: Risks, benefits, and alternatives have been discussed and questions answered. Patient agrees to proceed with procedure. Chief complaint: Neoplasm screening colon/rectum Narrative: Presley Ramos is a 63 year old male here for screening colonoscopy, last one 10 years ago Review of Systems Review of Systems: All systems reviewed & are unremarkable except as noted in HPI and below PMFSH Past Medical History Medical History (Updated 08/31/23 @ 07:54 by Scotty Babin MD) Colon cancer screening Obesity SHERAMN (obstructive sleep apnea) Surgical History Surgical History Presence of right artificial knee joint Status post total left knee replacement 12/23/2022 Social History Social History (Updated 07/08/23 @ 11:05 by Mckayla Griggs) Social History: Smoking packs per day: 1 Smoking cigarettes per day: 20.0 Years smoked: 20 Smoking pack-years: 20.00 Smoking status: Former smoker Tobacco type: cigarettes Second hand tobacco smoke exposure: Yes Smoking end date: 08/20/00 Additional smoking assessment comments: STATES HAS HAD 3 CIGARS IN 20 YRS Alcohol intake: current Drinks per week: 5 Substance use: never Substance use type: does not use Do You Feel Safe in your Home?: Yes Lack of Transportation: No Lack of Food: Never True Current Housing: I Have Housing Concerned About Future Housing: No Difficulty Paying Gas/Electric Bills: No Difficulty Paying for Meds: No Currently Unemployed: No Education: Bachelor's Degree Difficulty w/ Childcare or Family Care: No Living arrangements: with family Occupation/Education: occupation Gender identity (if verbalized by the patient): Male Sexual Orientation (if Verbalized by the Patient): Straight or Heterosexual Spiritual care concerns: Yes Meds Home Medications and Allergies Home Medications Medication Instructions Recorded Confirmed Type ascorbic acid (vitamin C) 1,000 mg 1 gm PO DAILY 04/25/19 08/31/23 History tablet aspirin 81 mg tablet,delayed 81 mg PO DAILY 04/25/19 08/31/23 History release famotidine 20 mg tablet 20 mg PO HS 04/25/19 08/31/23 History ouzucfbu-of-vswlr 300 mcg-K 60 1 tablet PO DAILY 04/25/19 08/31/23 History mcg-lycop 600 mcg-lutein 300 mcg tablet (Men 50 Plus Multivitamin) naproxen 500 mg tablet 500 mg PO BID PRN PRN 12/09/22 08/31/23 History Allergies Allergy/AdvReac Type Severity Reaction Status Date / Time No Known Allergies Allergy Verified 08/31/23 06:48 Vital Signs Vital Signs - 24 hr 08/31/23 06:49 Temperature 96.8 F L Pulse Rate 67 Respiratory Rate 18 Blood Pressure 135/72 Pulse Oximetry 96 Oxygen Delivery Room Air Exam Const: General: comfortable and no acute distress HENMT: Face/Nose/Sinus: Normal nares present Eyes: General: appearance normal, both eyes and all related structures Neck: Neck: no JVD Resp: Auscultation: clear to auscultation bilaterally Cardio: Rate: regular rate Rhythm: regular rhythm GI: Inspection: non-distended GI Palp: Yes Soft to palpation Skin: General skin exam: normal color Neuro: General: gait normal Speech: normal speech Extrem: General: normal to inspection Psych: Mental Status: mental status grossly normal Assessment and Plan Assessment and plan (1) Colon cancer screening: Code(s): Z12.11 - Encounter for screening for malignant neoplasm of colon Status: Acute Assessment and Plan: colonoscopy
--- NOTE | 2023-08-31 08:00 | WPDANESEPPF ---
Anes - Initial Pre Proc Eval Procedure: Operation Date: 08/31/23 08:00 Proposed Procedures p Screening Colonoscopy - Scotty Babin MD Date/Time: 08/31/23 08:00 Surgeon: Scotty Babin MD Pre Op Diagnosis: Neoplasm screening colon/rectum Patient Data Age: 63 Gender: M Height: 1.8 m Weight: 99.6 kg Last Vital Signs Temp 96.8 F L 08/31/23 06:49 Pulse 67 08/31/23 06:49 Resp 18 08/31/23 06:49 BP 135/72 08/31/23 06:49 Pulse Ox 96 08/31/23 06:49 O2 Del Method Room Air 08/31/23 06:49 Allergies Allergy/AdvReac Type Severity Reaction Status Date / Time No Known Allergies Allergy Verified 08/31/23 06:48 Home Medications Medication Instructions Recorded Confirmed Type ascorbic acid (vitamin C) 1,000 mg 1 gm PO DAILY 04/25/19 08/31/23 History tablet aspirin 81 mg tablet,delayed 81 mg PO DAILY 04/25/19 08/31/23 History release famotidine 20 mg tablet 20 mg PO HS 04/25/19 08/31/23 History cxpprrev-rf-[id number] 300 mcg-K 60 1 tablet PO DAILY 04/25/19 08/31/23 History mcg-lycop 600 mcg-lutein 300 mcg tablet (Men 50 Plus Multivitamin) naproxen 500 mg tablet 500 mg PO BID PRN PRN 12/09/22 08/31/23 History Patient hx anesthesia problems: none Family hx anesthesia problems: none Results Review: All pre-operative results and documents have been reviewed as part of the pre-operative evaluation. ON LICENSE OF [facility] Past Medical History Medical History (Updated 08/31/23 @ 07:54 by Scotty Babin MD) Colon cancer screening Obesity SHERMAN (obstructive sleep apnea) Surgical History Surgical History Presence of right artificial knee joint Status post total left knee replacement 12/23/2022 Social History Social History (Updated 07/08/23 @ 11:05 by Mckayla Griggs) Social History: Smoking packs per day: 1 Smoking cigarettes per day: 20.0 Years smoked: 20 Smoking pack-years: 20.00 Smoking status: Former smoker Tobacco type: cigarettes Second hand tobacco smoke exposure: Yes Smoking end date: 08/20/00 Additional smoking assessment comments: STATES HAS HAD 3 CIGARS IN 20 YRS Alcohol intake: current Drinks per week: 5 Substance use: never Substance use type: does not use Do You Feel Safe in your Home?: Yes Lack of Transportation: No Lack of Food: Never True Current Housing: I Have Housing Concerned About Future Housing: No Difficulty Paying Gas/Electric Bills: No Difficulty Paying for Meds: No Currently Unemployed: No Education: Bachelor's Degree Difficulty w/ Childcare or Family Care: No Living arrangements: with family Occupation/Education: occupation Gender identity (if verbalized by the patient): Male Sexual Orientation (if Verbalized by the Patient): Straight or Heterosexual Spiritual care concerns: Yes Anes - Raghu Final PreProcedure Day of Procedure 08/31/23 08:00 Patient weight: obese Heart: regular rate and rhythm Lungs: clear to auscultation Airway: Mallampati scale class II Neurological: alert and oriented Last oral intake: >/= 8 hours ASA classification: II Emergent: no Anesthetic plan: proceed Anesthesia type and monitoring: general GIVS and standard monitoring Results Review: All pre-operative results and documents have been reviewed as part of the pre-operative evaluation. Informed Consent: The patient's anesthetic plan and its attendant risks and benefits were discussed with the patient/family/POA. Questions were solicited and answers provided to the satisfaction of the patient/family/POA.
[2023-08-31 08:15] VITALS: BP 112/69; PULSE 73; RESP 13; O2SAT 98
[2023-08-31 08:25] VITALS: BP 113/84; PULSE 68; RESP 20; O2SAT 100
[2023-08-31 08:35] VITALS: BP 120/70; PULSE 63; RESP 23; O2SAT 100
== END 2023-08-31 08:38 | disposition home or self-care (01) ==
PROVIDERS: PCP Family Medicine; Referring Provider Physician Assistant; Visit Provider Internal Medicine Gastroenterology
PROC: 0DJD8ZZ Inspection of Lower Intestinal Tract, Via Natural or Artificial Opening Endoscopic (ICD-10-PCS; CPT 45378; principal; 2023-08-31 08:00)
DX: Z12.11 Encounter for screening for malignant neoplasm of colon (principal); D12.4 Benign neoplasm of descending colon; K64.8 Other hemorrhoids; K64.4 Residual hemorrhoidal skin tags; Z79.82 Long term (current) use of aspirin; G47.33 Obstructive sleep apnea (adult) (pediatric); E66.9 Obesity, unspecified; Z68.30 Body mass index [BMI] 30.0-30.9, adult; Z87.891 Personal history of nicotine dependence
CPT/HCPCS: 45385; 88305; J2704; J7120

== ENCOUNTER 2024-04-26 15:04 | Outpatient (CLI) | payer BC, SELFPAY ==
--- NOTE | ~2024-04-26 | XR_ITS ---
HISTORY: M54.9 - Dorsalgia, unspecified COMPARISON: None TECHNIQUE: 2 views of the thoracic spine were performed FINDINGS: No acute compression fracture is present. Bone mineralization is age-appropriate. Mild degenerative disease, with osteophyte formation and disc space narrowing. IMPRESSION: Trace degenerative disease, without fracture. Reviewed, dictated and finalized at location A. TANK CLEANER
--- NOTE | ~2024-04-26 | XR_ITS ---
Lumbosacral Spine: AP and lateral views Clinical History: Pain Findings: The normal lordotic curve is maintained. No fracture or subluxation seen. There are minimal degenerative changes. There is severe facet arthropathy from L4 through S1. There is mild facet arth ropathy at the upper lumbar spine. The sacroiliac joints are normally outlined. Impression: Facet joint degenerative change, as above. Reviewed, dictated and finalized at location . ING FINISHER Impression: Facet joint degenerative change, as above.
== END 2024-04-26 15:05 | disposition home or self-care (01) ==
LOC: MICIMG 15:05
PROVIDERS: PCP Family Medicine; Visit Provider Physician Assistant Medical
DX: M54.9 Dorsalgia, unspecified (principal)
CPT/HCPCS: 72070; 72100

== ENCOUNTER 2025-02-08 15:51 | Outpatient (CLI) | payer BC, SELFPAY ==
--- NOTE | ~2025-02-08 | XR_ITS ---
EXAMINATION: XR chest 2V DATE: 02/08/2025 16:33 INDICATION: Chest pain. TECHNIQUE: Frontal and lateral views of the chest were obtained. COMPARISON: None. FINDINGS: Heart size is normal. Lungs are free of acute processes. Small faintly calcified nodule 5 mm in size in the left upper lobe. No hilar or mediastinal enlargement. IMPRESSION: 1. No acute pulmonary findings. 2. Likely benign nodule in the left upper lobe. Comparison with prior chest x- rays is suggested to ensure benign process. Reviewed, dictated and finalized at location T. KEEPER IMPRESSION: 1. No acute pulmonary findings. 2. Likely benign nodule in the left upper lobe. Comparison with prior chest x-r ays is suggested to ensure benign process.
== END 2025-02-08 15:52 | disposition home or self-care (01) ==
PROVIDERS: PCP Family Medicine; Visit Provider Physician Assistant Medical
DX: R07.89 Other chest pain (principal)
CPT/HCPCS: 71046

== ENCOUNTER 2025-02-22 13:46 | Outpatient (CLI) | payer BC, SELFPAY ==
--- NOTE | ~2025-02-22 | CT_ITS ---
EXAMINATION:CT chest high resolution wo in DATE: 02/22/2025 14:02 INDICATION: Solitary pulmonary nodule. TECHNIQUE: Computed tomography (CT) of the chest was performed without intravenous contrast. Automated exposure control and iterative reconstruction technique were employed. The dose-length product (DLP) was 465.37 mGy-cm. COMPARISON: Chest 2 views 02/08/25 FINDINGS: The lungs demonstrate mild dependent atelectasis. A calcified left lung nodule and calcified left hilar lymph node are consistent with old granulomatous disease. There is a 3 mm nodule in left upper lobe, likely benign. No pleural effusion. The heart size is normal. There are coronary artery calcifications. No pericardial effusion. There are cysts in the liver measuring up to 7 mm. There is mild thoracic spondylosis. There is mild chronic anterior wedging of T12 vertebral body. IMPRESSION: 1. Small pulmonary nodule, likely benign. Reviewed, dictated and finalized at location E. CTION WAX MOLDER
== END 2025-02-22 13:47 | disposition home or self-care (01) ==
LOC: MICIMG 13:46
PROVIDERS: PCP Family Medicine; Visit Provider Physician Assistant Medical
DX: R91.1 Solitary pulmonary nodule (principal)
CPT/HCPCS: 71250